=== PATIENT | female | born 1990 | race Caucasian/White ===

== ENCOUNTER 2017-10-08 15:30 | Inpatient (IN) | payer MEDICAID, SELFPAY ==
--- NOTE | 2017-10-08 15:57 | PCM.HP.STD ---
Problem List (1) Chronic, continuous use of opioids Status: Acute (2) Cocaine use Status: Acute (3) Nicotine dependence Status: Acute (4) Syncope related to substance use Status: Chronic History of Present Illness Date of Admission: 10/08/17 Chief Complaint: Opioid withdrawal The patient is a 27 year old F with history of heroin and cocaine use and chronic nicotine dependence is being admitted through [facility] for stabilization of heroin use. Patient started using heroin at the age of 23, 1-2 g daily; last use yesterday. She also smokes cocaine 1-2 g daily started at the age of 21; last use yesterday. She also uses parts and smokes cigarettes one pack daily, started at the age of 16. She had couple times passed out because of drug intoxication. Denies any history of seizure, or other chronic medical disease. No history of significant needle related abscess or infective endocarditis [] Past Medical History Past Medical History (Chronic Problems): Chronic Problems Syncope related to substance use (Chronic) - *Family History Paternal History Items: No pertinent history Review of Systems Constitutional: Reports: Malaise, Weakness. Denies: Chills, Fever, Weight Change HEENT: Denies: Head Aches, Sinus Congestion, Sinus Drainage Cardiovascular: Denies: Chest Pain, Palpitations Respiratory: Denies: Cough, Shortness of breath at rest, Sputum production Gastrointestinal: Denies: Abdominal Pain, Nausea, Vomiting Genitourinary: Denies: Dysuria Musculoskeletal: Reports: Muscle pain. Denies: Joint Pain, Joint Tenderness Skin: Denies: Rash, Wounds Neurological: Denies: Numbness, Tingling, Focal weakness Psychiatric: Reports: Anxiety. Denies: Depression, Homicidal Ideations, Suicidal Ideations Hematologic/ Lymphatic: Denies: Easy Bruising, Easy Bleeding VTE Information - Inpt Only VTE Present on Admission: No VTE Mechan Device Prophylaxis: SCD's VTE Pharm Prophylaxis ordered?: Yes Patient Problems: Active and Suspected Problems Chronic, continuous use of opioids (Acute) Cocaine use (Acute) Nicotine dependence (Acute) - Physical Exam General: Alert, Oriented x3, Cooperative HEENT: Atraumatic, PERRLA, EOMI, Normocephalic Oral: Dry Mucosa Neck: Supple, No JVD, Negative Carotid Bruits Lungs: Clear to auscultation, Normal air movement Cardiovascular: Regular rate, Regular Rhythm, No murmurs Abdomen: Bowel Sounds Present, Soft, Non Tender, Non-Distended, No Hepato-splenomegaly Extremities: No edema, Capillary Refill Less than 3 Seconds Skin: No rashes, No breakdown Musculoskeletal: No Tenderness to Palpation of Joints or Extremities Neurological: Cranial nerves II-XII grossly intact, Neuro grossly intact Psych/Mental Status: Anxious Assessment/Plan Active and Suspected Problems Chronic, continuous use of opioids (Acute) Cocaine use (Acute) Nicotine dependence (Acute) The patient is a 27 year old F with history of heroin and cocaine use and chronic nicotine dependence is being admitted through [facility] program for stabilization of heroin use. Patient started using heroin at the age of 23, 1-2 g daily; last use yesterday. She also smokes cocaine 1-2 g daily started at the age of 21; last use yesterday. She also uses parts and smokes cigarettes one pack daily, started at the age of 16. She had couple times passed out because of drug intoxication. Denies any history of seizure, or other chronic medical disease. No history of significant needle related abscess or infective endocarditis 1. Acute opioid withdrawal: Patient is being admitted on MedSurg floor. Order set for medical stabilization as per [facility] protocol. Labs ordered including viral hepatitis A, B, and C and HIV as per patient's request. She states she is not . 2. Cocaine use 3. Nicotine dependence and marijuana use: Patient counseled for drug cessation. DVT prophylaxis: Low risk does not require prophylaxis. Code Visit Inpatient E&M: 26990 Init Hosp L3
[2017-10-08 16:07] VITALS: BMI 33.6
[2017-10-08 16:11] VITALS: PULSE 97; RESP 18; TEMP 36.7
--- NOTE | 2017-10-08 16:11 | HP.PCM_ITS ---
Problem List (1) Chronic, continuous use of opioids Status: Acute (2) Cocaine use Status: Acute (3) Nicotine dependence Status: Acute (4) Syncope related to substance use Status: Chronic History of Present Illness Date of Admission: 10/08/17 Chief Complaint: Opioid withdrawal The patient is a 27 year old F with history of heroin and cocaine use and chronic nicotine dependence is being admitted through [facility] for stabilization of heroin use. Patient started using heroin at the age of 23, 1-2 g daily; last use yesterday. She also smokes cocaine 1-2 g daily started at the age of 21; last use yesterday. She also uses parts and smokes cigarettes one pack daily, started at the age of 16. She had couple times passed out because of drug intoxication. Denies any history of seizure, or other chronic medical disease. No history of significant needle related abscess or infective endocarditis [] Past Medical History Past Medical History (Chronic Problems): Chronic Problems Syncope related to substance use (Chronic) - *Family History Paternal History Items: No pertinent history Review of Systems Constitutional: Reports: Malaise, Weakness. Denies: Chills, Fever, Weight Change HEENT: Denies: Head Aches, Sinus Congestion, Sinus Drainage Cardiovascular: Denies: Chest Pain, Palpitations Respiratory: Denies: Cough, Shortness of breath at rest, Sputum production Gastrointestinal: Denies: Abdominal Pain, Nausea, Vomiting Genitourinary: Denies: Dysuria Musculoskeletal: Reports: Muscle pain. Denies: Joint Pain, Joint Tenderness Skin: Denies: Rash, Wounds Neurological: Denies: Numbness, Tingling, Focal weakness Psychiatric: Reports: Anxiety. Denies: Depression, Homicidal Ideations, Suicidal Ideations Hematologic/ Lymphatic: Denies: Easy Bruising, Easy Bleeding VTE Information - Inpt Only VTE Present on Admission: No VTE Mechan Device Prophylaxis: SCD's VTE Pharm Prophylaxis ordered?: Yes Patient Problems: Active and Suspected Problems Chronic, continuous use of opioids (Acute) Cocaine use (Acute) Nicotine dependence (Acute) - Physical Exam General: Alert, Oriented x3, Cooperative HEENT: Atraumatic, PERRLA, EOMI, Normocephalic Oral: Dry Mucosa Neck: Supple, No JVD, Negative Carotid Bruits Lungs: Clear to auscultation, Normal air movement Cardiovascular: Regular rate, Regular Rhythm, No murmurs Abdomen: Bowel Sounds Present, Soft, Non Tender, Non-Distended, No Hepato- splenomegaly Extremities: No edema, Capillary Refill Less than 3 Seconds Skin: No rashes, No breakdown Musculoskeletal: No Tenderness to Palpation of Joints or Extremities Neurological: Cranial nerves II-XII grossly intact, Neuro grossly intact Psych/Mental Status: Anxious Assessment/Plan Active and Suspected Problems Chronic, continuous use of opioids (Acute) Cocaine use (Acute) Nicotine dependence (Acute) The patient is a 27 year old F with history of heroin and cocaine use and chronic nicotine dependence is being admitted through [facility] program for stabilization of heroin use. Patient started using heroin at the age of 23, 1-2 g daily; last use yesterday. She also smokes cocaine 1-2 g daily started at the age of 21; last use yesterday. She also uses parts and smokes cigarettes one pack daily, started at the age of 16. She had couple times passed out because of drug intoxication. Denies any history of seizure, or other chronic medical disease. No history of significant needle related abscess or infective endocarditis 1. Acute opioid withdrawal: Patient is being admitted on MedSurg floor. Order set for medical stabilization as per [facility] protocol. Labs ordered including viral hepatitis A, B, and C and HIV as per patient's request. She states she is not . 2. Cocaine use 3. Nicotine dependence and marijuana use: Patient counseled for drug cessation. DVT prophylaxis: Low risk does not require prophylaxis. Code Visit Inpatient E&M: 20092 Init Hosp L3
[2017-10-08 16:15] VITALS: BMI 33.7
[2017-10-08] MEDS: QUEtiapine 25 MG Tablet PO (16:44)
[2017-10-08] MEDS: Ondansetron ODT 4 MG Tablet PO (16:44)
[2017-10-08] MEDS: Ibuprofen 600 MG Tablet PO (16:44)
[2017-10-08] MEDS: Dicyclomine 10 MG Capsule 20 MG PO (16:44)
[2017-10-08] MEDS: Buprenorphine HCl 2 MG TAB.SUBL SL (16:44)
[2017-10-08] MEDS: chlordiazePOXIDE 25 MG Capsule PO ×2 (16:44→20:23)
[2017-10-08] MEDS: cloNIDine HCl 0.1 MG Tablet PO (16:44)
[2017-10-08 16:45] LABS: Absolute Lymphocyte Count 2.67 X10^3/ul (0.83-4.51); Absolute Neutrophil Count 4.1 X10^3/uL (2.0-7.7); Basophil# 0.02 X10^3/uL; Basophil% 0.3 % (0-1); Eosinophil# 0.28 X10^3/uL; Eosinophils% 3.5 % (0-5); Hematocrit 39.7 % (37-47); Hemoglobin 13.3 g/dl (12.0-15.0); Lymphocyte # 2.67 X10^3/ul (4.0); Lymphocyte % 33.4 % (19-41); Mean Corp Hgb Conc 33.5 g/gl (32-36); Mean Corpuscular Hgb 30.7 pg (27.0-32.0); Mean Corpuscular Volume 91.7 fL (81-99); Mean Platelet Vol. 9.4 fl (6.2-12.0); Monocyte# 0.91 X10^3/uL; Monocyte% 11.4 % (0-10); Neutrophil % 51.3 % (47-70); POSITIVE COUNT NO; POSITIVE DIFFERENTIAL NO; POSITIVE MORPHOLOGY NO; Platelet Count 267 K/mm3 (150-450); RBC Distribution Width CV 12.6 % (11.6-14.6); RBC Distribution Width SD 42.4 fl (35.1-43.9); Red Blood Count 4.33 M/mm3 (4.2-5.4)
[2017-10-08 16:56] LABS: International Normalized Ratio 1.1; Prothrombin Time (Protime)PT. 14.1 SECONDS (11.7-14.9)
[2017-10-08 17:11] LABS: Lipase 92 U/L (73-393)
[2017-10-08 17:12] LABS: Alcohol, Blood (Medical)-Serum < 3.0 mg/dL
[2017-10-08 17:17] LABS: Pregnancy, Serum, hCG Quali. NEGATIVE Negative (0-9 Nonpreg)
[2017-10-08 17:32] LABS: ALB/GLOB Ratio 0.7 RATIO (0.9-2.4); AST(SGOT) 24 U/L (15-37); Alanine Aminotransfer ALT/SGPT 34 U/L (13-56); Albumin, Serum 3.2 g/dL (3.2-5.0); Alkaline Phosphatase 98 U/L (45-117); Anion Gap 6 (5-15); BUN 15 mg/dL (7-18); Calcium,Total 8.6 mg/dL (8.5-10.1); Chloride 106 mmol/L (98-107); Creatinine, Serum 1.15 mg/dL (0.55-1.02); EST Glomerular Filtration Rate 61 mL/min (>60); Est Glom Filt Rate - Afr Amer 73 mL/min (>60); Estimated Creatinine Clearance 58.63 ml/min; Globulin 4.4 g/dL (2.2-4.2); Glucose 109 mg/dL (74-106); Potassium 3.3 mmol/L (3.5-5.1); Protein, Total 7.6 g/dL (6.4-8.2); Sodium Level 140 mmol/L (136-145)
[2017-10-08 18:34] LABS: Amphetamine Urine VISTA NEGATIVE (<1000 ng/mL); Barbiturate Urine VISTA NEGATIVE (< 200 ng/mL); Benzodiazepine Urine VISTA NEGATIVE (< 200 ng/mL); Cocaine Urine VISTA POSITIVE (< 300 ng/mL); Ecstacy Urine VISTA NEGATIVE (< 500 ng/mL); Methadone Urine VISTA NEGATIVE (< 300 ng/mL); PCP Urine VISTA NEGATIVE (< 25 ng/mL); THC Urine VISTA POSITIVE (< 50 ng/mL); Vista UDS pH Range 5
[2017-10-08 20:20] VITALS: BP 109/56; PULSE 90; RESP 14; TEMP 36.6
[2017-10-08] MEDS: Methocarbamol 750 MG Tablet PO (20:23)
[2017-10-09 00:03] VITALS: BP 93/51; PULSE 73; RESP 16; TEMP 36.4
[2017-10-09] MEDS: Buprenorphine HCl 2 MG TAB.SUBL SL ×3 (00:06→16:35)
[2017-10-09] MEDS: chlordiazePOXIDE 25 MG Capsule PO ×4 (00:06→12:16)
[2017-10-09] MEDS: traZODone 50 MG Tablet PO ×2 (00:06→22:33)
[2017-10-09] MEDS: Pramipexole Di-HCl 0.25 MG Tablet PO ×2 (00:06→12:16)
[2017-10-09 03:57] VITALS: BP 94/54; PULSE 73; RESP 14; TEMP 36.4
[2017-10-09] MEDS: Ibuprofen 600 MG Tablet PO ×2 (03:58→22:39)
[2017-10-09] MEDS: Dicyclomine 10 MG Capsule 20 MG PO ×2 (03:59→13:05)
[2017-10-09] MEDS: Methocarbamol 750 MG Tablet PO ×2 (03:59→17:09)
--- NOTE | 2017-10-09 07:45 | PN_ITS ---
Patient Problems: Active and Suspected Problems Chronic, continuous use of opioids (Acute) Cocaine use (Acute) Nicotine dependence (Acute) Subjective: Patient was seen and examined. Complains of hot and cold flashes, abdominal cramps. Admitted last night with opiate withdrawal. Her urine toxicology was positive for cannabinoids, cocaine and opiates. Vitals/I&O's: Vital Signs Temp Pulse Resp BP 97.6 F L 73 14 94/54 L 10/09/17 03:57 10/09/17 03:57 10/09/17 03:57 10/09/17 03:57 Weight: 83.5 kg Body Mass Index (BMI) 33.6 Intake and Output for Last 24 Hours 10/07/17 10/08/17 10/09/17 23:59 23:59 23:59 Intake Total 400 / 400 Balance 400 / 400 General: Alert, Oriented x3, Cooperative, No apparent distress HEENT: Atraumatic, PERRLA, EOMI, Normocephalic Oral: Moist Mucosa Neck: Supple Lungs: Clear to auscultation, Normal air movement Cardiovascular: Regular rate, Regular Rhythm, Normal S1, Normal S2, No murmurs Abdomen: Bowel Sounds Present, Soft, Non Tender, Non-Distended, No Hepato- splenomegaly Extremities: No edema Skin: No rashes, No breakdown Musculoskeletal: No Tenderness to Palpation of Joints or Extremities Lymphatic: No Cervical, Supraclavicular, or Inguinal Adenopathy Neurological: Cranial nerves II-XII grossly intact, Neuro grossly intact Psych/Mental Status: Agitated, Anxious Laboratory Results 10/08/17 16:26: WBC 8.0, RBC 4.33, Hgb 13.3, Hct 39.7, MCV 91.7, MCH 30.7, MCHC 33.5, RDW 12.6, RDW Differential 42.4, Plt Count 267, MPV 9.4, Immature Gran % ( Auto) 0.100, Neut % (Auto) 51.3, Lymph % (Auto) 33.4, [place] % (Auto) 11.4 H, Eos % (Auto) 3.5, Baso % (Auto) 0.3, Absolute Neuts (auto) 4.1, Absolute Lymphs ( auto) 2.67, Total Counted Not Reportable 10/08/17 16:26: PT 14.1, INR 1.1 10/08/17 16:26: Sodium 140, Potassium 3.3 L, Chloride 106, Carbon Dioxide 28.0, Anion Gap 6, BUN 15, Creatinine 1.15 H, Estim Creat Clear Calc 58.63, Est GFR ( MDRD) Af Amer 73, Est GFR (MDRD) Non-Af 61, BUN/Creatinine Ratio 13.0, Glucose 109 H, Calcium 8.6, Total Bilirubin 0.20, AST 24, ALT 34, Alkaline Phosphatase 98, Total Protein 7.6, Albumin 3.2, Globulin 4.4 H, Albumin/Globulin Ratio 0.7 L 10/08/17 16:26: Hepatitis A IgM Ab Pending, Hep Bs Antigen Pending, Hep B Core IgM Ab Pending, Hepatitis C Ab (EIA) Pending 10/08/17 16:26: HIV 1&2 Antibody Pending 10/08/17 16:26: Lipase 92 10/08/17 16:26: Ethyl Alcohol < 3.0 10/08/17 16:26: Serum , Qual NEGATIVE 10/08/17 16:30: Urine Opiates Screen POSITIVE H, Urine Methadone Screen NEGATIVE , Ur Barbiturates Screen NEGATIVE, Ur Phencyclidine Scrn NEGATIVE, Ur Amphetamines Screen NEGATIVE, U Methamphetamin-MDMA NEGATIVE, U Benzodiazepines Scrn NEGATIVE, Urine Cocaine Screen POSITIVE H, U Cannabinoids Screen POSITIVE H , Ur Drug Screen Comment Current Medications Acetaminophen (Tylenol) 500 mg PO Q4H PRN PRN PRN Reason: Temp > 100.4 F Al Hydroxide/Mg Hydroxide (Mylanta Ii) 30 ml PO Q6H PRN PRN PRN Reason: dyspesia Bisacodyl (Dulcolax) 10 mg RECTAL DAILY PRN PRN Reason: Constipation Buprenorphine HCl (Buprenorphine Hcl) 4 mg SL Q8H [facility] PRN Reason: Taper Stop: 10/11/17 20:29 Last Admin: 10/09/17 00:06 Dose: 4 mg Chlordiazepoxide (Librium) 25 mg PO Q6H PRN PRN PRN Reason: Anxiety Score 2-3/3 Chlordiazepoxide (Librium) 25 mg PO Q4H [facility] Stop: 10/09/17 12:31 Last Admin: 10/09/17 03:59 Dose: 25 mg Clonidine (Catapres) 0.1 mg PO Q2H PRN PRN PRN Reason: Hot/Cold Sweats or Anxiety Last Admin: 10/08/17 16:44 Dose: 0.1 mg Dicyclomine HCl (Bentyl) 20 mg PO Q6H PRN PRN PRN Reason: Abdomnial Discomfort Last Admin: 10/09/17 03:59 Dose: 20 mg Folic Acid (Folic Acid) 1 mg PO DAILY@0800 [facility] Hydroxyzine HCl (Vistaril Vial) 50 mg IM Q6H PRN PRN PRN Reason: Breakthrough Anxiety Hydroxyzine Pamoate (Vistaril Pamoate Capsule) 50 mg PO Q6H PRN PRN PRN Reason: Mild Anxiety (score 1/3) Ibuprofen (Motrin) 600 mg PO Q8H PRN PRN PRN Reason: Mild-Moderate Pain (1-5/10) Last Admin: 10/09/17 03:58 Dose: 600 mg Loperamide HCl (Imodium) 2 - 4 mg PO UD PRN PRN Reason: LOOSE STOOLS Methocarbamol (Methocarbamol) 750 mg PO Q6H PRN PRN PRN Reason: Muscle Aches Last Admin: 10/09/17 03:59 Dose: 750 mg Multivitamins/Minerals (Multivitamin With Minerals) [facility] Nicotine (Nicoderm Cq (Pbkc)) 21 mg TRANSDERM. DAILY [facility] Last Admin: 10/08/17 16:44 Dose: 21 mg Ondansetron HCl (Zofran Odt) 4 mg PO Q6H PRN PRN PRN Reason: NAUSEA Last Admin: 10/08/17 16:44 Dose: 4 mg Pramipexole Dihydrochloride (Mirapex) 0.25 mg PO Q12H PRN PRN PRN Reason: Restless Legs Last Admin: 10/09/17 00:06 Dose: 0.25 mg Quetiapine Fumarate (Seroquel) 25 mg PO Q6H PRN PRN PRN Reason: Moderate Anxiety (score 2/3) Last Admin: 10/08/17 16:44 Dose: 25 mg Senna (Senokot) 1 tablet PO QHS PRN PRN Reason: Constipation Sodium Chloride () 5 - 30 ml IV UD PRN PRN Reason: SALINE FLUSH Thiamine HCl (Vitamin B1) 100 mg PO DAILYCM [facility] Trazodone HCl (Desyrel) 50 mg PO QHS [facility] Last Admin: 10/09/17 00:06 Dose: 50 mg Medical Necessity - Tobacco Use Smoking Status: Current every day smoker Assessment/Plan Active and Suspected Problems Chronic, continuous use of opioids (Acute) Cocaine use (Acute) Nicotine dependence (Acute) 27-year-old female with past medical history of substance use disorder comes in for medical stabilization from heroin use. She has been admitted under [facility]. A urine tox was positive for opiates, cocaine and cannabinoids. 1. Acute opiate withdrawal, being managed on withdrawal protocol,, continue per [facility] protocol. 2. Polysubstance use disorder,, cannabinoids, heroine, advised to quit 3. History of syncope with polysubstance use, events in the hospital 4. DVT prophylaxis with early ambulation. Code Visit Inpatient E&M: 91927 Subs Hosp L2
[2017-10-09 08:00] VITALS: BP 92/53; PULSE 72; RESP 16; TEMP 36.4
[2017-10-09] MEDS: Thiamine Hydrochloride 100 MG Tablet PO (08:08)
[2017-10-09] MEDS: Folic Acid 1 MG Tablet PO (08:08)
[2017-10-09] MEDS: Multivitamins,Ther W-Minerals Tablet 1 TABLET PO (08:08)
[2017-10-09 09:25] LABS: Anion Gap 7 (5-15); BUN 19 mg/dL (7-18); BUN/Creat Ratio 30.4 RATIO (10-20); Calcium,Total 8.4 mg/dL (8.5-10.1); Chloride 108 mmol/L (98-107); Creatinine, Serum 0.62 mg/dL (0.55-1.02); EST Glomerular Filtration Rate 122 mL/min (>60); Est Glom Filt Rate - Afr Amer 148 mL/min (>60); Estimated Creatinine Clearance 108.75 ml/min; Glucose 87 mg/dL (74-106); Potassium 3.7 mmol/L (3.5-5.1); Sodium Level 141 mmol/L (136-145)
[2017-10-09 10:32] LABS: HIV - WCH Non-Reactive (Nonreactive)
[2017-10-09 12:00] VITALS: BP 93/61; PULSE 94; RESP 16; TEMP 36.5
--- NOTE | 2017-10-09 15:25 | CHAPLAIN ---
patient says that she is very sleepy and is weak; pt would like rn unit manager to come back at another time
[2017-10-09 16:00] VITALS: BP 97/54; PULSE 77; RESP 16; TEMP 36.4; O2SAT 98
[2017-10-09 22:26] VITALS: BP 114/75; PULSE 79; RESP 14; TEMP 36.9; O2SAT 98
[2017-10-09] MEDS: cloNIDine HCl 0.1 MG Tablet PO (22:33)
[2017-10-10] MEDS: cloNIDine HCl 0.1 MG Tablet PO ×2 (00:44→17:35)
[2017-10-10] MEDS: Methocarbamol 750 MG Tablet PO ×3 (00:44→19:57)
[2017-10-10] MEDS: Buprenorphine HCl 2 MG TAB.SUBL SL ×3 (00:44→21:35)
[2017-10-10 00:47] VITALS: BP 100/61; PULSE 77
[2017-10-10 00:48] VITALS: BP 100/61; PULSE 77; RESP 14; TEMP 36.9
[2017-10-10 03:07] LABS: HEPATITIS B SURFACE AG Negative (Negative); Hepatitis A IgM Antibody Negative (Negative); Hepatitis B Core AB IgM Negative (Negative)
[2017-10-10 06:35] VITALS: BP 92/55; PULSE 68; PULSE 69; RESP 14; TEMP 36.9; O2SAT 100
[2017-10-10] MEDS: Folic Acid 1 MG Tablet PO (07:58)
[2017-10-10] MEDS: Thiamine Hydrochloride 100 MG Tablet PO (07:58)
[2017-10-10] MEDS: Multivitamins,Ther W-Minerals Tablet 1 TABLET PO (07:58)
--- NOTE | 2017-10-10 08:09 | PCM.PN.HOSP ---
Patient Problems: Active and Suspected Problems Chronic, continuous use of opioids (Acute) Cocaine use (Acute) Nicotine dependence (Acute) Subjective: Patient was seen and examined. No new complaints. Feels that her symptoms are getting better with the current management. Still has hot and cold flashes. Able to tolerate her meals. Objective: Physical exam: General: Alert, Oriented x3, Cooperative, No apparent distress HEENT: Atraumatic, PERRLA, EOMI, Normocephalic Oral: Moist Mucosa Neck: Supple Lungs: Clear to auscultation, Normal air movement Cardiovascular: Regular rate, Regular Rhythm, Normal S1, Normal S2, No murmurs Abdomen: Bowel Sounds Present, Soft, Non Tender, Non-Distended, No Hepato-splenomegaly Extremities: No edema Skin: No rashes, No breakdown Musculoskeletal: No Tenderness to Palpation of Joints or Extremities Lymphatic: No Cervical, Supraclavicular, or Inguinal Adenopathy Neurological: Cranial nerves II-XII grossly intact, Neuro grossly intact Psych/Mental Status: Appropriate Vitals/I&O's: Vital Signs Temp Pulse Resp BP Pulse Ox 98.4 F 69 14 92/55 L 100 10/10/17 06:35 10/10/17 06:35 10/10/17 06:35 10/10/17 06:35 10/10/17 06:35 Oxygen Delivery Method Room Air Weight: 83.5 kg Body Mass Index (BMI) 33.6 Intake and Output for Last 24 Hours 10/08/17 10/09/17 10/10/17 23:59 23:59 23:59 Intake Total 400 / 400 Balance 400 / 400 Laboratory Results 10/08/17 16:26: HIV 1&2 Antibody Non-Reactive 10/09/17 08:05: Sodium 141, Potassium 3.7, Chloride 108 H, Carbon Dioxide 26.0, Anion Gap 7, BUN 19 H, Creatinine 0.62, Estim Creat Clear Calc 108.75, Est GFR (MDRD) Af Amer 148, Est GFR (MDRD) Non-Af 122, BUN/Creatinine Ratio 30.4 H, Glucose 87, Calcium 8.4 L Current Medications Acetaminophen (Tylenol) 500 mg PO Q4H PRN PRN PRN Reason: Temp > 100.4 F Al Hydroxide/Mg Hydroxide (Mylanta Ii) 30 ml PO Q6H PRN PRN PRN Reason: dyspesia Bisacodyl (Dulcolax) 10 mg RECTAL DAILY PRN PRN Reason: Constipation Buprenorphine HCl (Buprenorphine Hcl) 2 mg SL Q8H [facility] PRN Reason: Taper Stop: 10/11/17 20:29 Last Admin: 10/10/17 07:58 Dose: 2 mg Chlordiazepoxide (Librium) 25 mg PO Q6H PRN PRN PRN Reason: Anxiety Score 2-3/3 Clonidine (Catapres) 0.1 mg PO Q2H PRN PRN PRN Reason: Hot/Cold Sweats or Anxiety Last Admin: 10/10/17 00:44 Dose: 0.1 mg Dicyclomine HCl (Bentyl) 20 mg PO Q6H PRN PRN PRN Reason: Abdomnial Discomfort Last Admin: 10/09/17 13:05 Dose: 20 mg Folic Acid (Folic Acid) 1 mg PO DAILY@0800 [facility] Last Admin: 10/10/17 07:58 Dose: 1 mg Hydroxyzine HCl (Vistaril Vial) 50 mg IM Q6H PRN PRN PRN Reason: Breakthrough Anxiety Hydroxyzine Pamoate (Vistaril Pamoate Capsule) 50 mg PO Q6H PRN PRN PRN Reason: Mild Anxiety (score 1/3) Ibuprofen (Motrin) 600 mg PO Q8H PRN PRN PRN Reason: Mild-Moderate Pain (1-5/10) Last Admin: 10/09/17 22:39 Dose: 600 mg Loperamide HCl (Imodium) 2 - 4 mg PO UD PRN PRN Reason: LOOSE STOOLS Methocarbamol (Methocarbamol) 750 mg PO Q6H PRN PRN PRN Reason: Muscle Aches Last Admin: 10/10/17 00:44 Dose: 750 mg Multivitamins/Minerals ([facility]ivitamin With Minerals) [facility] Last Admin: 10/10/17 07:58 Dose: 1 tablet Nicotine (Nicoderm Cq (Pbkc)) 21 mg TRANSDERM. DAILY [facility] Last Admin: 10/10/17 07:59 Dose: 21 mg Ondansetron HCl (Zofran Odt) 4 mg PO Q6H PRN PRN PRN Reason: NAUSEA Last Admin: 10/08/17 16:44 Dose: 4 mg Pramipexole Dihydrochloride (Mirapex) 0.25 mg PO Q12H PRN PRN PRN Reason: Restless Legs Last Admin: 10/09/17 12:16 Dose: 0.25 mg Quetiapine Fumarate (Seroquel) 25 mg PO Q6H PRN PRN PRN Reason: Moderate Anxiety (score 2/3) Last Admin: 10/08/17 16:44 Dose: 25 mg Senna (Senokot) 1 tablet PO QHS PRN PRN Reason: Constipation Sodium Chloride () 5 - 30 ml IV UD PRN PRN Reason: SALINE FLUSH Thiamine HCl (Vitamin B1) 100 mg PO DAILYCM [facility] Last Admin: 10/10/17 07:58 Dose: 100 mg Trazodone HCl (Desyrel) 50 mg PO QHS [facility] Last Admin: 10/09/17 22:33 Dose: 50 mg Medical Necessity - Tobacco Use Smoking Status: Current every day smoker Assessment/Plan Active and Suspected Problems Chronic, continuous use of opioids (Acute) Cocaine use (Acute) Nicotine dependence (Acute) 27-year-old female with past medical history of substance use disorder comes in for medical stabilization from heroin use. She has been admitted under the [facility]. Admitting urine tox was positive for opiates, cocaine and cannabinoids. 1. Acute opiate withdrawal, improving, will continue on [facility] protocol. 2. Polysubstance use disorder - cannabinoids, nicotine, heroin, advised to quit. 3. Hepatitis C, new diagnosis, needs to be followed up in the outpatient. 4. History of syncope with polysubstance use, asymptomatic. 5. DVT prophylaxis with early ambulation. 6. Disposition: DC in am if stable. Code Visit Inpatient E&M: 56528 Subs Hosp L2
[2017-10-10 10:09] LABS: Hep C Antibodies >11.0 s/co ratio (0.0-0.9)
[2017-10-10 11:29] VITALS: BP 99/62; PULSE 72; RESP 16; TEMP 36.7
[2017-10-10] MEDS: chlordiazePOXIDE 25 MG Capsule PO (12:15)
[2017-10-10] MEDS: Pramipexole Di-HCl 0.25 MG Tablet PO (16:04)
[2017-10-10 16:16] VITALS: BP 103/65; PULSE 85; RESP 16; TEMP 36.6
[2017-10-10 19:51] VITALS: BP 105/58; PULSE 79; PULSE 84; RESP 14; TEMP 36.7; O2SAT 98
[2017-10-10] MEDS: traZODone 50 MG Tablet PO (21:35)
[2017-10-11 03:54] VITALS: BP 98/62; PULSE 76; RESP 16; TEMP 36.8; O2SAT 97
[2017-10-11] MEDS: Ibuprofen 600 MG Tablet PO (04:01)
[2017-10-11] MEDS: Pramipexole Di-HCl 0.25 MG Tablet PO (04:02)
--- NOTE | 2017-10-11 07:13 | PCM.DC ---
- Discharge Diagnoses Current Active Problems: Current Active and Chronic Problems Chronic, continuous use of opioids (Acute) Cocaine use (Acute) Nicotine dependence (Acute) Syncope related to substance use (Chronic) Reason(s) for Visit for Discharge Instructions: Opiate withdrawa You will use the following diet at home:: Regular Your food should be the consistency of: Regular Your liquids should be the consistency of: Regular/Thin Discharge Activity: Return to Normal Activity Additional Instructions: You are strongly advised to stop using heroin, cocaine and marijuana. Continue to follow-up with your outpatient program Allergies/Adverse Reactions: Allergies No Known Allergies Allergy (Verified 10/08/17 16:08) Primary Care Physician: Care Physician,No Primary [Primary Care Provider] - Please follow up with your Primary Care Physician in: in 2 weeks Proposed Discharge Date: 10/11/17
--- NOTE | 2017-10-11 08:14 | PCM.DC.SUM ---
Discharge Date and Diagnosis - Problem List Patient Problems: Active and Suspected Problems Chronic, continuous use of opioids (Acute) Cocaine use (Acute) Nicotine dependence (Acute) Date of Admission: 10/08/17 Date of Discharge: 10/11/17 - Primary Discharge Diagnosis Active and Suspected Problems Chronic, continuous use of opioids (Acute) Cocaine use (Acute) Nicotine dependence (Acute) - Secondary Discharge Diagnosis Chronic Problems Syncope related to substance use (Chronic) Hospital Course and Treatment None Operations: None Procedures: None Summary of Care Provided: 27-year-old female with past medical history of substance use disorder comes in for medical stabilization from heroin use. She has been admitted under the [facility]. Admitting urine tox was positive for opiates, cocaine and cannabinoids. 1. Acute opiate withdrawal, managed on [facility] protocol with improvement. 2. Polysubstance use disorder - cannabinoids, nicotine, heroin, advised to quit. 3. Hepatitis C, new diagnosis, needs to be followed up in the outpatient. Discharge Diet: No Restrictions Discharge Activity: Return to Normal Activity Primary Care Physician: Care Physician,No Primary [Primary Care Provider] - Please follow up with your Primary Care Physician in: in 2 weeks Disposition: Home Minutes spent on discharge:: 40 Patient Condition:: Stable Medical Necessity - Tobacco Use Smoking Status: Current every day smoker Meaningful Use Info Meaningful Use Diagnoses (Choose all that apply): None applicable Code Visit Inpatient E&M: 46354 Disch Hosp
[2017-10-11 08:24] VITALS: BP 96/57; PULSE 85; RESP 16; TEMP 36.4
[2017-10-11] MEDS: Folic Acid 1 MG Tablet PO (08:25)
[2017-10-11] MEDS: Multivitamins,Ther W-Minerals Tablet 1 TABLET PO (08:25)
[2017-10-11] MEDS: Buprenorphine HCl 2 MG TAB.SUBL SL (08:25)
[2017-10-11] MEDS: Thiamine Hydrochloride 100 MG Tablet PO (08:26)
== END 2017-10-11 09:03 | disposition home or self-care (01) | DRG 434 ==
PROVIDERS: Admitting Provider Internal Medicine; Visit Provider Internal Medicine
DX: F11.23 Opioid dependence with withdrawal (principal); B19.20 Unspecified viral hepatitis C without hepatic coma; F14.90 Cocaine use, unspecified, uncomplicated; F12.90 Cannabis use, unspecified, uncomplicated; F17.210 Nicotine dependence, cigarettes, uncomplicated; Z87.898 Personal history of other specified conditions
CPT/HCPCS: 36415; 80048; 80053; 80074; 80307; 80320; 83690; 84703; 85025; 85610; 86703; G0480